=== PATIENT | female | born 1975 | race Caucasian/White ===

== ENCOUNTER 2023-02-13 14:45 | Outpatient (CLI) | payer OTHER, SELFPAY ==
[2023-02-13 16:19] LABS: HIV 1/2 Ab P24 Ag Result Negative (Negative)
[2023-02-13 17:15] LABS: Hepatitis B Surface Antigen Negative (Negative)
[2023-02-13 17:20] LABS: HAV RESULT Negative (Negative); Hepatitis B Core IgM Result Negative (Negative)
[2023-02-13 17:32] LABS: Hepatitis C Virus Antibody Negative (Negative)
[2023-02-14 07:56] LABS: Rapid Plasma Reagin Non-Reactive (NonReactive)
== END 2023-02-13 14:46 | disposition home or self-care (01) ==
PROVIDERS: PCP Internal Medicine; Visit Provider Student in an Organized Health Care Education/Training Program
DX: Z11.3 Encounter for screening for infections with a predominantly sexual mode of transmission (principal)
CPT/HCPCS: 36415; 80074; 86592; 86695; 86696; 86703; G0432